=== PATIENT | male | born 1960 | race Caucasian/White ===

== ENCOUNTER 2021-02-28 08:11 | Emergency (ER) | payer OTHER ==
[~2021-02-28] VITALS: Ht 172.7 cm; Wt 63.5 kg
[2021-02-28 08:14] VITALS: BP 127/88
[2021-02-28] MEDS ORDERED: ACETAMINOPHEN 325 MG TAB PO ONE (08:20)
[2021-02-28] MEDS ORDERED: HYDROcodone/APAP 5/325 MG 1 TAB TAB PO ONE (08:20)
[2021-02-28] MEDS ORDERED: HYDROcodone/APAP 5/325 MG 1 TAB TAB ONE (08:22)
[2021-02-28] MEDS ORDERED: ACET-10509 PO (09:36)
[2021-02-28] MEDS ORDERED: CEPH-588 PO (09:36)
[2021-02-28] MEDS ORDERED: OLANZapine 5 MG ODT ONE (10:10)
[2021-02-28] MEDS ORDERED: OLANZapine 5 MG ODT PO ONE (10:10)
[2021-02-28] MEDS ORDERED: LORazepam 2 MG/ML VIAL IM/IVP ONE (11:35)
[2021-02-28] MEDS ORDERED: HALOPERIDOL IM 5 MG/ML VIAL IM ONE (11:35)
[2021-02-28] MEDS: diphenhydrAMINE 50 MG/ML VIAL IM ONE ×2 (11:35→16:10)
[2021-02-28] MEDS ORDERED: MAG SULF 2000 MG/WATER PREMIX 50 ML IV ONE ×2 (12:10→19:02)
[2021-02-28 13:21] LABS: BASOPHILS # (AUTO) 0.1 K/uL (0.00-0.22); BASOPHILS % (AUTO) 0.8 % (0.0-2.0); EOSINOPHILS # (AUTO) 0.1 K/uL (0-0.4); HEMATOCRIT 32.9 % (36-52); HEMOGLOBIN 11.1 g/dL (12.0-18.0); LYMPHOCYTES # (AUTO) 1.6 K/uL (2.0-11.5); LYMPHOCYTES % (AUTO) 21.1 % (20.5-51.1); MEAN CORPUSCULAR HEMOGLOBIN 31 pg (27-31); MEAN CORPUSCULAR HGB CONC 34 g/dL (33-37); MEAN CORPUSCULAR VOLUME 92.6 fL (80-94); MONOCYTES # (AUTO) 0.9 K/uL (0.8-1.0); MONOCYTES % (AUTO) 11.8 % (1.7-9.3); NEUTROPHILS # (AUTO) 4.9 K/uL (1.8-7.7); NEUTROPHILS % (AUTO) 65.3 % (42.2-75.2); PLATELET COUNT (AUTO) 308 K/uL (140-450); RED BLOOD CELL COUNT(AUTO) 3.55 MIL/uL (4.20-6.10); RED CELL DISTRIBUTION WIDTH 13.8 % (11.6-13.7); WHITE BLOOD COUNT (AUTO) 7.5 K/uL (4.8-10.8)
[2021-02-28 13:34] LABS: ALBUMIN 3.7 g/dL (3.4-5.0); ANION GAP 10.6 (8-16); ASPARTATE AMINOTRANSFERASE 57 U/L (15-37); CARBON DIOXIDE 29.8 mmol/L (21-32); CHLORIDE 104 mmol/L (98-107); CREATININE 0.8 mg/dL (0.6-1.3); FREE T4 (FREE THYROXINE) 1.18 ng/dL (0.76-1.46); GFR ARICAN-AMERICAN 127 mL/min (>90); GLUCOSE 115 mg/dL (74-106); POTASSIUM 3.4 mmol/L (3.5-5.1); SODIUM SERUM 141 mmol/L (136-145); THYROID STIMULATING HORMONE 1.46 uIU/mL (0.34-3.74); TOTAL BILIRUBIN 0.7 mg/dL (0.0-1.0); UREA NITROGEN, BLOOD 15 mg/dL (7-18)
[2021-02-28 13:37] LABS: SALICYLATE < 2.8 mg/dL (2.8-20.0)
[2021-02-28 13:38] LABS: ACETAMINOPHEN < 0.5 ug/ml (10-30)
[2021-02-28 16:31] LABS: APPEARANCE,URINE CLEAR (CLEAR); BILIRUBIN,URINE NEGATIVE (NEGATIVE); BLOOD, URINE TRACE-I (NEGATIVE); COLOR,URINE YELLOW (YELLOW); LEUKOCYTE ESTERASE ,URINE NEGATIVE (NEGATIVE); NITRITE, URINE NEGATIVE (NEGATIVE); UGLUCOSE NEGATIVE (NEGATIVE)
[2021-02-28 16:46] LABS: RBC,URINE 0-5 /HPF (0-5); WBC,URINE NONE SEEN /HPF (0-5)
[2021-02-28 16:50] LABS: BARBITURATE, URINE NEGATIVE ng/ml (NEG <=200)
[2021-02-28 16:53] LABS: BENZODIAZEPINE, URINE POSITIVE ng/mL (NEG <=200)
[2021-02-28 16:54] LABS: CANNABINOID, URINE POSITIVE ng/mL (NEG <=50); COCAINE, URINE NEGATIVE ng/mL (NEG <=300); OPIATE, URINE POSITIVE ng/mL (NEG <=2000); PHENCYCLIDINE SCREEN,URINE NEGATIVE ng/mL (NEG <=25)
[2021-03-01] MEDS ORDERED: risperiDONE 1 MG TAB PO SCH ×2 (09:00→21:00)
[2021-03-01 23:02] VITALS: BP 135/79
== END 2021-03-01 23:02 ==
LOC: MED 08:11
DX: M25.562 Pain in left knee (principal); Z20.822 Contact with and (suspected) exposure to COVID-19; R41.0 Disorientation, unspecified; R45.1 Restlessness and agitation; F17.290 Nicotine dependence, other tobacco product, uncomplicated; Z79.899 Other long term (current) drug therapy
CPT/HCPCS: 36415; 70450; 73562; 80053; 80305; 81001; 84439; 84443; 85025; 87426; 93005; 96365; 96375; 99285; G0480; G0482; J1200; J1630; J2060; J3475; U0003